=== PATIENT | male | born 1960 | race Caucasian/White ===

== ENCOUNTER 2021-09-05 20:54 | Emergency (ER) | payer BC ==
[~2021-09-05] VITALS: Ht 179 cm; Wt 117.2 kg
--- NOTE | 2021-09-05 21:06 | ED Upper Extremity ---
General Stated Complaint: HAND INJURY Source: patient Exam Limitations: no limitations (GINA RYAN) History of Present Illness Date Seen by Provider: Sep 05, 2021 Time Seen by Provider: 21:03 Initial Comments Patient is a 61-year-old male who presents ED with a laceration to the left palmar hand. This occurred 30 minutes ago. Attempted to adjust a tailgate when his finger got caught between a metal piece on the tailgate cartridge assembling machine adjuster resulting in a 1-2 cm laceration on the palmar side of the left index finger. He reports normal active range of motion. Mild pain and discomfort at this time. Denies obvious deformity. Bleeding controlled direct pressure. Not up-to-date on his tetanus within the past 5 years. (GINA RYAN) Allergies and Home Medications Allergies Coded Allergies: No Known Drug Allergies (Unverified , 05/17/10) Patient Home Medication List Home Medication List Reviewed: Yes (GINA RYAN) Review of Systems Constitutional: No chills, No diaphoresis, No malaise, No weakness EENTM: No hearing loss, No ear pain, No mouth pain, No mouth swelling Respiratory: No cough, No short of breath Cardiovascular: No chest pain Gastrointestinal: No abdominal pain, No diarrhea, No nausea, No vomiting Genitourinary: No decreased output Musculoskeletal: No back pain; joint pain, muscle pain Skin: change in color, other (Laceration to the left index finger on palmar side) (GINA RYAN) All Other Systems Reviewed Negative Unless Noted: Yes (GINA RYAN) Physical Exam Vital Signs Vital Signs - First Documented 09/05/21 21:00 Temp 36.2 Pulse 70 Resp 16 B/P (MAP) 162/93 (116) Pulse Ox 96 O2 Delivery Room Air (MASSIMO,LALI K DO) Vital Signs Capillary Refill : (GINA RYAN) Height, Weight, BMI Height: '" Weight: lbs. oz. kg; BMI Method: General Appearance: WD/WN, no apparent distress HEENT: PERRL/EOMI, normal ENT inspection, TMs normal, pharynx normal Neck: non-tender, full range of motion, supple Cardiovascular: regular rate, rhythm, no edema, no gallop, no JVD Respiratory: chest non-tender, lungs clear, normal breath sounds, no respiratory distress Gastrointestinal: normal bowel sounds, non tender, soft, no organomegaly Shoulder: normal inspection, non-tender, no evidence of injury Elbow/Forearm: normal inspection, non-tender, no evidence of injury Hand: normal ROM (Normal active range of motion of left index finger at the DIP, PIP joint), Left, laceration (2 cm laceration to the left palmar index finger.) Neurologic/Tendon: normal sensation, normal motor functions, normal tendon functions Neurologic/Psychiatric: box car bracer II-XII nml as tested, no motor/sensory deficits, alert, normal mood/affect, oriented x 3 Skin: other (1 cm laceration to the left palmar index finger.) (GINA RYAN) Procedures/Interventions Wound Location: Upper Extremities Other Wound Location left index finger Wound Length (cm): 2 Wound's Depth, Shape: superficial, sub Q Wound Explored: clean Irrigated w/ Saline (ccs): 300 Betadine Prep?: Yes Anesthesia: 1% Lidocaine Volume Anesthetic (ccs): 4 Suture: Ethlion Suture Size: 5-0 Number of Sutures: 5 Layer Closure?: 1 Sterile Dressing Applied?: Yes (GINA RYAN) Progress/Results/Core Measures Results/Orders Medications Given in ED Current Medications Medications Dose Ordered Sig/Neel Route Start Time Stop Time Status Last Admin Dose Admin Diphtheria/ Tetanus/Acell Pertussis 0.5 ml ONCE ONCE IM 09/05/21 21:15 09/05/21 21:16 DC 09/05/21 21:14 0.5 ML (LALI KEYS DO) Vital Signs/I&O 09/05/21 09/05/21 21:00 21:47 Temp 36.2 Pulse 70 72 Resp 16 16 B/P (MAP) 162/93 (116) 156/87 Pulse Ox 96 97 O2 Delivery Room Air (LALI KEYS DO) Departure Communication (PCP) Patient has a 2 cm laceration to the left index finger on the palmar side. No tendon, muscular involvement. mild Adipose involvement. Neurovascular intact. 5 Ethilon sutures were placed here in the ED. Remove sutures in 10 to 12 days. Discussed Neosporin daily. Extensive irrigation here. Procedure documented note. No evidence of infection. Updated tetanus here. Return precaution were discussed with patient such as increased pain, swelling or redness. Patient agrees with plan of action. Provided finger splint to allow healing. (GINA RYAN) Impression Primary Impression: Hand laceration Disposition: 01 HOME, SELF-CARE Condition: Stable Departure-Patient Inst. Decision time for Depature: 21:34 (GINA RYAN) Referrals: SHANNON HAWTHORNE MD (PCP) Primary Care Physician Patient Instructions: Laceration Repair With Stitches ED Add. Discharge Instructions: Remove sutures in 10 to 14 days. ATTENDING PHYSICIAN NOTE: I WAS PHYSICALLY PRESENT ER PHYSICIAN, BUT I WAS NOT INVOLVED IN ANY DECISION MAKING OR ANY CARE OF THIS PATIENT. (LALI KEYS DO) GINA RYAN Sep 05, 2021 21:05 LALI KEYS DO Sep 05, 2021 23:49
[2021-09-05] MEDS ORDERED: TETANUS,DIPTH,PERTUSS P/F (BOOSTRIX) 0.5 ML VIAL IM ONE (21:15)
[2021-09-05 21:47] VITALS: BP 156/87
== END 2021-09-05 21:45 | disposition home or self-care (01) ==
LOC: EDUNIT# 20:54 → ER 20:57
DX: S61.211A Laceration without foreign body of left index finger without damage to nail, initial encounter (principal); Z23 Encounter for immunization; W23.0XXA Caught, crushed, jammed, or pinched between moving objects, initial encounter
CPT/HCPCS: 12001; 90471; 90715